=== PATIENT | male | born 1990 | race Caucasian/White ===

== ENCOUNTER 2023-03-14 10:16 | Emergency (ER) | payer SELFPAY ==
[2023-03-14] MEDS ORDERED: Boostrix 0.5 ML (Tdap) VIAL (>/=7 yrs of age) ONE (11:06)
== END 2023-03-14 11:14 | disposition home or self-care (01) ==
LOC: BURERS 10:16
DX: S51.812A Laceration without foreign body of left forearm, initial encounter (principal); Z23 Encounter for immunization; W26.0XXA Contact with knife, initial encounter
CPT/HCPCS: 12001; 90471; 90715